=== PATIENT | female | born 1995 | race Caucasian/White ===

== ENCOUNTER 2018-09-04 03:17 | Observation (INO) ==
[2018-09-04 04:19] LABS: Amphetamine Screen,Urine Negative ng/mL (Cutoff=1000); Barbiturate Screen,Urine Negative ng/mL (Cutoff=200); Benzodiazepines Screen,Urine Negative ng/mL (Cutoff=200); Cannabinoid Screen,Urine Negative ng/mL (Cutoff = 50); Cocaine Screen,Urine Negative ng/mL (Cutoff= 300); Opiate Screen,Urine Negative ng/mL (Cutoff=300); Phencyclidine Screen,Urine Negative ng/mL (Cutoff=25)
--- NOTE | 2018-09-04 08:27 | Discharge Summary ---
Date of Encounter: 09/04/18 Time of Encounter: 08:25 - Discharge Diagnosis (1) 30 weeks gestation of Priority: Primary Status: Acute Comments: Patient admitted to observation for complaint of lower abdominal pain and c onstipation as well as vaginal swelling. Unilateral labial swelling was noted on RN exam so patient was given ice pads for comfort. (2) NST (non-stress test) reactive Priority: Secondary Status: Acute Comments: FHR 135 bpm moderate variability, +15x15 accels, no decels. (3) Constipation Priority: Secondary Status: Acute Comments: Patient reports no bowel movement x 2 days and has strained on the toilet for 2 hours tonight without relief. States she has labial swelling as well. PTL was ruled out and reactive NST was obtained so patient was discharged to ER for further evaluation and treatment of constipation. Qualifiers: Constipation type: unspecified constipation type Qualified Code(s): K59.00 - Constipation, unspecified (4) Elevated blood pressure affecting in third trimester, antepartum Priority: Secondary Status: Acute Comments: Patient reports she is supposed to be taking Labetalol and ASA due to blood pressure issues but she is not currently taking either one. BP ranges from 135-154 over 63-71 while monitored in L&D Patient to follow up for routine care as scheduled and encourage by RN to take medications as prescribed. - Discharge Medications Home Medications: Adult Multi Gummies 1 mg PO DAILY 09/04/18 [History] Aspirin [Lo-Dose Aspirin EC] 1 mg PO DAILY 09/04/18 [History] Labetalol [Trandate] 1 mg PO BID 09/04/18 [History] Ondansetron HCl [Zofran] 4 mg PO PRN PRN 09/04/18 [History] Allergies/Adverse Reactions: Allergy/AdvReac Type Severity Reaction Status Date / Time No Known Allergies Allergy Verified 09/04/18 04:44 Data Procedures and tests throughout hospitalization: Laboratory Tests 09/04/18 03:45 Urine Opiates Screen Negative Ur Barbiturates Screen Negative Ur Phencyclidine Scrn Negative Ur Amphetamines Screen Negative U Benzodiazepines Scrn Negative Urine Cocaine Screen Negative U Marijuana (THC) Screen Negative Ur Drug Screen Interp See Below Labs on day of discharge: Labs from last 24 hours 09/04/18 03:45 Urine Opiates Screen Negative Ur Barbiturates Screen Negative Ur Phencyclidine Scrn Negative Ur Amphetamines Screen Negative U Benzodiazepines Scrn Negative Urine Cocaine Screen Negative U Marijuana (THC) Screen Negative Ur Drug Screen Interp See Below Date of admission: 09/04/18 03:17 Discharging clinician: Asmita Hood Anticipated date of discharge: 09/04/18 - Patient Status Disposition: Home, Self-Care Condition: Good Functional capacity at discharge: independent ambulation Overall status at discharge: patient is progressing back to baseline - Discharge Instructions Additional Instructions: LABOR AND DELIVERY DISCHARGE INSTRUCTIONS Signs and Symptoms to be Reported to your Doctor Immediately: * Sudden gush, continuous or intermittent lead of fluid from vagina (note the time of gush and color of fluid) * Onset of bright red vaginal bleeding with or without pain (if you had a vaginal exam during this visit you may notice some dark red spotting. This is normal.) * Lower abdominal cramping or backache that is premenstrual-like feeling. * More than 6 contractions in one hour. * Burning during urination, having to urinate more frequently or pain in your mid-back. * A change in the baby's activity. This could be an increase or decrease in activity. * Severe headache which does not go away with tylenol. * Sudden swelling in the face, hands, arms and/or legs. * Upper abdominal pain - sometimes associated with heartburn or nausea and is not relieved by Maalox, Mylanta or Tums. * Dizziness or blurred vision or visual disturbances (seeing stars/lights). * Kick Counts One hour after a meal, lay down on one side in a quiet place. Count the number of geoffrey the baby moves during an hour. If less than 6 movements, notify your physician. Diet: *Force fluids - 8-10 tall glasses of fluid per day. May include popsicles and jello. *Limit caffeine - this includes chocolate, coffee, tea, any soft drink containing such as all gregory, Silver Yellow and Mountain Dew - Diet and Activity Activity: resume usual activities as tolerated Diet: regular diet Hospital Course [employer] Time Attestation: Total time spent providing and/or coordinating discharge services: Time Spent: Less than 30 minutes - VTE Reasons for not Prescribing Prophylaxis: Treatment not Indicated - Low risk for VTE
== END 2018-09-04 04:14 | disposition home or self-care (01) ==
LOC: 1NENULAB
PROVIDERS: ADMIT Registered Nurse; ATTEND Registered Nurse